=== PATIENT | female | born 2000 | race Two or more races ===

== ENCOUNTER 2023-12-02 11:40 | Emergency (ER) | payer OTHER, SELFPAY ==
[2023-12-02] MEDS ORDERED: Acetaminophen/Codeine 30-300mg Tablet ONE (12:54)
[2023-12-02] MEDS ORDERED: Ketorolac Tromethamine 30 MG (1 mL) VIAL ONE (12:54)
== END 2023-12-02 13:23 | disposition home or self-care (01) ==
LOC: BURERS 11:40
DX: S82.431A Displaced oblique fracture of shaft of right fibula, initial encounter for closed fracture (principal); S82.51XA Displaced fracture of medial malleolus of right tibia, initial encounter for closed fracture; S93.491A Sprain of other ligament of right ankle, initial encounter; S80.11XA Contusion of right lower leg, initial encounter; F17.290 Nicotine dependence, other tobacco product, uncomplicated; W01.198A Fall on same level from slipping, tripping and stumbling with subsequent striking against other object, initial encounter; Y93.41 Activity, dancing
CPT/HCPCS: 29515; 96372; J1885

== ENCOUNTER 2025-06-08 15:03 | Emergency (ER) | payer OTHER | END 2025-06-08 15:34 | disposition home or self-care (01) | LOC: BURERS 15:03 | DX: L73.9 Follicular disorder, unspecified (principal); F17.290 Nicotine dependence, other tobacco product, uncomplicated | CPT/HCPCS: 99282 ==